=== PATIENT | female | born 1985 | race Caucasian/White ===

== ENCOUNTER 2019-06-12 10:55 | Emergency (ER) | payer MEDICAID ==
[~2019-06-12] VITALS: Ht 162.6 cm; Wt 68.6 kg
[~2019-06-12 10:55] MED LIST: ATI1T PO; CYCL-1 PO; CYCL-394 PO; DIAZ10TA PO; DOCU-148; EFF25T PO; GUAI120015 PO; HC A30CR2 RC; HYDR1TAB PO; LAMO25TA4 PO; MUPI15CR TP; ONDA4TAB6 PO; PRENATAL ONE T1 EACH PO; PSEU-259 CORPAK
[2019-06-12 12:06] LABS: URINE HCG NEGATIVE (NEG)
[2019-06-12 12:07] LABS: CLARITY,URINE CLEAR (Clear); COLOR,URINE YELLOW (Yellow); GLUCOSE, URINE NEGATIVE (Neg); KETONES,URINE NEGATIVE (Neg); LEUKOCYTE ESTERASE ,URINE NEGATIVE (Neg); NITRITES, URINE NEGATIVE (Neg); OCCULT BLOOD,URINE SMALL (Neg); PROTEIN,URINE NEGATIVE (Neg); UROBILINOGEN,URINE 0.2 E.U/dL (0.2-1.0)
[2019-06-12 12:18] LABS: BASOPHILS % (AUTO) 0.6 % (0-1); EOSINOPHILS # (AUTO) 0.1 X10'3 (0-0.9); EOSINOPHILS % (AUTO) 1.1 % (0-6); HEMATOCRIT 37.7 % (35.0-45.0); LYMPHOCYTES # (AUTO) 1.3 X10'3 (1.1-4.8); LYMPHOCYTES % (AUTO) 22.7 % (21-51); MEAN CORPUSCULAR HEMOGLOBIN 31.4 PG (27.0-31.0); MEAN CORPUSCULAR HGB CONC 34.6 g/dL (33.0-36.5); MEAN CORPUSCULAR VOLUME 90.7 FL (78-98); MEAN PLATELET VOLUME 6.4 FL (7.4-10.4); MONOCYTES # (AUTO) 0.4 X10'3 (0-0.9); MONOCYTES % (AUTO) 6.9 % (2-12); NEUTROPHILS % (AUTO) 68.7 % (42-75); PLATELET COUNT 261 X10'3 (140-440); RED BLOOD COUNT 4.15 X10'6 (4.20-5.60); WHITE BLOOD COUNT 5.8 X10'3 (4.5-11.0)
[2019-06-12 12:23] LABS: UA COLLECTION TYPE CLN CATCH MIDSTREAM
[2019-06-12 12:24] LABS: URINE AMPHETAMINE SCREEN NEGATIVE (Neg); URINE BARBITUATE SCREEN NEGATIVE (Neg); URINE BENZODIAZEPINES SCREEN NEGATIVE (Neg); URINE CANNABINOID SCREEN NEGATIVE (Neg); URINE COCAINE SCREEN NEGATIVE (Neg); URINE METHADONE SCREEN NEGATIVE (Neg); URINE OPIATE SCREEN NEGATIVE (Neg); URINE PHENCYCLIDINE SCREEN NEGATIVE (Neg)
[2019-06-12 12:28] LABS: BACTERIA,URINE 1+ /HPF (Neg); RBC,URINE 0-2 /HPF (0-2); SQUAMOUS EPITHELIAL CELL,UR MANY /LPF (FEW); WBC,URINE 0-4 /HPF (0-4)
[2019-06-12 12:28] LABS: PARTIAL THROMBOPLASTIN TIME 25 SECONDS (22-32)
[2019-06-12 12:31] LABS: ALANINE AMINOTRANSFERASE 16 U/L (12-78); ALBUMIN 3.4 G/DL (3.4-5.0); ALKALINE PHOSPHATASE 50 IU/L (46-116); ANION GAP 4 (8-16); ASPARTATE AMINO TRANSFERASE 19 U/L (10-37); BILIRUBIN,TOTAL 0.2 MG/DL (0.1-1.0); BLOOD UREA NITROGEN 7 MG/DL (7-18); BUN/CREATININE RATIO 8.4 (6.6-38.0); CALCIUM 9.3 MG/DL (8.5-10.1); CHLORIDE 106 MMOL/L (99-107); CREATININE 0.83 MG/DL (0.40-0.90); GLUCOSE 83 MG/DL (70-104); POTASSIUM 3.5 MMOL/L (3.5-5.1); SODIUM 144 MMOL/L (135-145); TOTAL CARBON DIOXIDE 34.4 MMOL/L (24-32); TOTAL PROTEIN 6.7 G/DL (6.4-8.2); eGFR 78 ML/MIN
[2019-06-12 12:56] VITALS: BP 136/87
== END 2019-06-12 13:01 | disposition home or self-care (01) ==
LOC: ER 10:56
DX: R60.0 Localized edema (principal); R06.02 Shortness of breath; R53.1 Weakness; R53.83 Other fatigue; G89.29 Other chronic pain; F17.210 Nicotine dependence, cigarettes, uncomplicated; Z86.14 Personal history of Methicillin resistant Staphylococcus aureus infection; Z88.5 Allergy status to narcotic agent; Z79.899 Other long term (current) drug therapy
CPT/HCPCS: 36415; 71045; 80053; 80305; 81001; 81025; 83880; 85025; 85610; 85730; 93005; 99285

== ENCOUNTER 2021-07-08 22:30 | Emergency (ER) | payer MEDICAID ==
[~2021-07-08] VITALS: Ht 162.6 cm; Wt 63.0 kg
[~2021-07-08 22:30] MED LIST changes: -EFF25T PO; +VENL25TA48 PO
[2021-07-08 23:46] LABS: URINE HCG POSITIVE (NEG)
[2021-07-08 23:49] LABS: CLARITY,URINE CLEAR (Clear); COLOR,URINE YELLOW (Yellow); GLUCOSE, URINE NEGATIVE (Neg); KETONES,URINE NEGATIVE (Neg); LEUKOCYTE ESTERASE ,URINE NEGATIVE (Neg); NITRITES, URINE NEGATIVE (Neg); OCCULT BLOOD,URINE NEGATIVE (Neg); PROTEIN,URINE NEGATIVE (Neg); UROBILINOGEN,URINE 0.2 E.U/dL (0.2-1.0)
[2021-07-08 23:51] LABS: UA COLLECTION TYPE CLN CATCH MIDSTREAM
[2021-07-09 02:02] VITALS: BP 136/88
--- NOTE | 2021-07-09 02:32 | NUR ---
Ultrasound at bedside
== END 2021-07-09 03:39 | disposition home or self-care (01) ==
LOC: ER 22:31
DX: O26.891 Other specified pregnancy related conditions, first trimester (principal); M25.561 Pain in right knee; G89.29 Other chronic pain; Z86.14 Personal history of Methicillin resistant Staphylococcus aureus infection; Z3A.01 Less than 8 weeks gestation of pregnancy; Z88.8 Allergy status to other drugs, medicaments and biological substances; Z79.899 Other long term (current) drug therapy
CPT/HCPCS: 36415; 76801; 81003; 81025; 84702; 99284

== ENCOUNTER 2021-10-28 09:40 | Emergency (ER) | payer MEDICAID ==
[~2021-10-28] VITALS: Ht 165.1 cm; Wt 63.2 kg
[2021-10-28] MEDS ORDERED: ACYC-1 PO (10:58)
[2021-10-28 11:16] VITALS: BP 128/87
== END 2021-10-28 11:19 | disposition home or self-care (01) ==
LOC: ER 09:41
DX: O46.8X2 Other antepartum hemorrhage, second trimester (principal); O23.41 Unspecified infection of urinary tract in pregnancy, first trimester; Z3A.20 20 weeks gestation of pregnancy; G89.29 Other chronic pain; M54.9 Dorsalgia, unspecified; Z86.14 Personal history of Methicillin resistant Staphylococcus aureus infection; Z88.5 Allergy status to narcotic agent; Z79.899 Other long term (current) drug therapy
CPT/HCPCS: 99284

== ENCOUNTER 2023-04-17 18:35 | Emergency (ER) | payer MEDICAID ==
[~2023-04-17] VITALS: Ht 165.1 cm; Wt 68.0 kg
[~2023-04-17 18:35] MED LIST changes: +DIAZ-546 PO; -DIAZ10TA PO
[2023-04-17 18:53] VITALS: TEMP 98.2
[2023-04-17 19:25] LABS: URINE HCG NEGATIVE (NEG)
[2023-04-17 19:38] LABS: BILIRUBIN,URINE NEGATIVE (Neg); CLARITY,URINE SLIGHTLY CLOUDY (Clear); COLOR,URINE YELLOW (Yellow); GLUCOSE, URINE NEGATIVE (Neg); KETONES,URINE NEGATIVE (Neg); LEUKOCYTE ESTERASE ,URINE NEGATIVE (Neg); NITRITES, URINE NEGATIVE (Neg); OCCULT BLOOD,URINE NEGATIVE (Neg); PROTEIN,URINE NEGATIVE (Neg); UROBILINOGEN,URINE 0.2 E.U/dL (0.2-1.0)
[2023-04-17 19:45] LABS: MUCUS STRANDS MODERATE /LPF (Neg); SQUAMOUS EPITHELIAL CELL,UR MODERATE /LPF (FEW); TRANSITIONAL EPI CELLS,URINE MODERATE /HPF; UA COLLECTION TYPE CLN CATCH MIDSTREAM
[2023-04-17 19:46] LABS: BACTERIA,URINE 1+ /HPF (Neg); RBC,URINE 0-2 /HPF (0-2); WBC,URINE 0-4 /HPF (0-4)
[2023-04-17 20:01] LABS: HEMOGLOBIN 13.6 g/dl (12.0-16.0); MONOCYTES # (AUTO) 0.4 X10'3 (0-0.9)
[2023-04-17 20:07] LABS: BASOPHILS % (AUTO) 0.6 % (0-1); EOSINOPHILS # (AUTO) 0.1 X10'3 (0-0.9); EOSINOPHILS % (AUTO) 1.3 % (0-6); LYMPHOCYTES # (AUTO) 1.9 X10'3 (1.1-4.8); LYMPHOCYTES % (AUTO) 32.9 % (21-51); MEAN CORPUSCULAR HGB CONC 34.8 g/dL (33.0-36.5); MEAN PLATELET VOLUME 6.3 FL (7.4-10.4); NEUTROPHILS # (AUTO) 3.3 X10'3 (1.8-7.7); NEUTROPHILS % (AUTO) 58.2 % (42-75); PLATELET COUNT 241 X10'3 (140-440); RED BLOOD COUNT 4.24 X10'6 (4.20-5.60); RED CELL DISTRIBUTION WIDTH 12.9 % (11.5-14.5); WHITE BLOOD COUNT 5.7 X10'3 (4.5-11.0)
[2023-04-17 20:15] LABS: ALANINE AMINOTRANSFERASE 12 U/L (12-78); ALBUMIN 3.8 G/DL (3.4-5.0); ALBUMIN/GLOBULIN RATIO 1.1 (1.1-1.5); ALKALINE PHOSPHATASE 67 IU/L (46-116); ANION GAP 11 (8-16); ASPARTATE AMINO TRANSFERASE 13 U/L (10-37); BILIRUBIN,TOTAL 0.3 MG/DL (0.1-1.0); BLOOD UREA NITROGEN 12 MG/DL (7-18); BUN/CREATININE RATIO 11.4 (10.0-20.0); CALCIUM 9.2 MG/DL (8.5-10.1); CHLORIDE 101 MMOL/L (99-107); CREATININE 1.05 MG/DL (0.40-0.90); GLUCOSE 130 MG/DL (70-104); LIPASE 29 U/L (16-77); POTASSIUM 3.7 MMOL/L (3.5-5.1); SODIUM 138 MMOL/L (135-145); TOTAL CARBON DIOXIDE 25.7 MMOL/L (24-32); TOTAL PROTEIN 7.3 G/DL (6.4-8.2); eCRCL 64 ML/MIN; eGFR 58 ML/MIN
[2023-04-17] MEDS ORDERED: ketorolac trometh. 30mg/ml inj. IV ONE (20:15)
[2023-04-17] MEDS ORDERED: normal saline 1000ml 1,000 ML IV ONE (20:15)
[2023-04-17] MEDS ORDERED: PROP10TA10 PO (20:28)
[2023-04-17] MEDS ORDERED: MELO-100 PO (20:28)
[2023-04-17 21:41] VITALS: RESP 16
[2023-04-17 22:07] LABS: D-DIMER < 0.19 MG/L FEU (0-0.50)
[2023-04-17] MEDS ORDERED: FAMO-129 PO (22:37)
[2023-04-17] MEDS ORDERED: PANT20TA18 PO (22:37)
[2023-04-17 23:02] VITALS: BP 139/79; PULSE 89; O2SAT 98
== END 2023-04-17 23:07 | disposition home or self-care (01) ==
LOC: ER 18:35
DX: R10.12 Left upper quadrant pain (principal); Z88.5 Allergy status to narcotic agent; Z79.899 Other long term (current) drug therapy; Z79.2 Long term (current) use of antibiotics
CPT/HCPCS: 36415; 71045; 80053; 81001; 81025; 83690; 85025; 85379; 96361; 96374; 99284; J1885; J7030

== ENCOUNTER 2023-11-12 18:18 | Emergency (ER) | payer MEDICAID ==
[~2023-11-12] VITALS: Ht 165.1 cm; Wt 65.9 kg
[~2023-11-12 18:18] MED LIST changes: -ATI1T PO; -CYCL-1 PO; -CYCL-394 PO; -DIAZ-546 PO; -DOCU-148; +FAMO-129 PO; -GUAI120015 PO; -HC A30CR2 RC; -HYDR1TAB PO; -LAMO25TA4 PO; +MELO-100 PO; -MUPI15CR TP; -ONDA4TAB6 PO; +PANT20TA18 PO; +PROP10TA10 PO; -PSEU-259 CORPAK; -VENL25TA48 PO
[2023-11-12 18:29] VITALS: BP 127/82; PULSE 87; RESP 17; TEMP 98.8; O2SAT 98
[2023-11-12] MEDS: ketorolac trometh. 30mg/ml inj. IM ONE (19:26)
[2023-11-12] MEDS: acetaminophen 325mg tablet PO ONE (19:26)
== END 2023-11-12 19:35 | disposition home or self-care (01) ==
LOC: ER 18:18
DX: S29.8XXA Other specified injuries of thorax, initial encounter (principal); M25.512 Pain in left shoulder; G89.29 Other chronic pain; M54.9 Dorsalgia, unspecified; Z88.5 Allergy status to narcotic agent; Z79.899 Other long term (current) drug therapy; Z79.2 Long term (current) use of antibiotics; V49.88XA Car occupant (driver) (passenger) injured in other specified transport accidents, initial encounter; Y93.89 Activity, other specified; Y92.89 Other specified places as the place of occurrence of the external cause; Y99.8 Other external cause status
CPT/HCPCS: 72040; 72070; 72100; 96372; 99284; J1885

== ENCOUNTER 2024-07-29 13:57 | Outpatient (CLI) | payer MEDICAID | END 2024-07-29 23:59 | disposition home or self-care (01) | LOC: MRI02 13:57 | PROVIDERS: ATTEND General Practice | DX: M51.16 Intervertebral disc disorders with radiculopathy, lumbar region (principal); M54.50 Low back pain, unspecified; M48.07 Spinal stenosis, lumbosacral region; M47.817 Spondylosis without myelopathy or radiculopathy, lumbosacral region | CPT/HCPCS: 72148 ==